=== PATIENT | female | born 1990 | race Two or more races ===

== ENCOUNTER 2017-02-21 12:21 | Emergency (ER) | payer BC ==
--- NOTE | 2017-02-21 12:26 | EDPHY ---
H & P HPI/ROS: HPI CHIEF COMPLAINT: Anxiety/panic attack, syncope HISTORY OF PRESENT ILLNESS: This patient is a very pleasant 26-year-old female , denies having any significant past medical history except for anxiety and what she thinks is panic attacks. She presents emergency room as she states for the past 2-3 hours she has been having palpitations or racing heart regular rhythm. She states she felt very anxious about this she laid down on the ground and states she had a syncopal episode brief loss of consciousness. She did not fall. She denies any chest pain or shortness of breath. Did not have a headache. She states is very brief episode. She feels anxious. She decided come the emergency room if the courage min of her significant other. Upon arrival to the emergency room she is refusing any line or blood draw. She initially did not want any medications but is finally agreed to take half a dose of Ativan p.o. orally and perform an EKG. She does understand that if her concerned that she had a syncopal event we usually check electrolytes and possibly her thyroid and blood sugar however she is refusing any blood draw or IV establishment or blood stick. She is agreeable on EKG and Ativan tab. Of note her vitals are normal here in the emergency room she appears well nontoxic no acute distress. She does admit to having history of syncopal episodes she thinks is anxiety related. Past Medical History: Anxiety, panic attacks Past Surgical History: Denies surgical history Social History: Denies daily use drugs alcohol tobacco products. Lives locally. Works as a psychotherapist. Family History: Noncontributory ROS REVIEW OF SYSTEMS: A comprehensive 10 point review of systems is otherwise negative aside from elements mentioned in the history of present illness. Exam Constitutional appears well nontoxic triage nursing summary reviewed, vital signs reviewed, awake/alert. Eyes normal conjunctivae and sclera, EOMI, PERRLA. HENT normal inspection, atraumatic, moist mucus membranes, no epistaxis, neck supple/ no meningismus, no raccoon eyes. Respiratory clear to auscultation bilaterally, normal breath sounds, no respiratory distress, no wheezing. Cardiovascular rate normal, regular rhythm, no murmur, no edema, distal pulses normal. Gastrointestinal soft, non-tender, no rebound, no guarding, normal bowel sounds, no distension, no pulsatile mass. Genitourinary no CVA tenderness. Musculoskeletal no midline vertebral tenderness, full range of motion, no calf swelling, no tenderness of extremities, no meningismus, good pulses, neurovascularly intact. Skin pink, warm, & dry, no rash, skin atraumatic. Neurologic awake, alert and oriented x 3, AAOx3, moves all 4 extremities equally, motor intact, sensory intact, CN II-XII intact, normal cerebellar, normal vision, normal speech. Psychiatric normal mood/affect. Heme/Lymph/Immune no lymphadenopathy. Differential Diagnosis: Includes but is not limited to in a particular order acute anxiety, panic attack, electrolyte disturbance, thyroid dysfunction, cardiac arrhythmia Medical Decision Making: Plan for this patient will obtain EKG an oral p.o. Ativan 0.5 mg. she has declined blood draw, IV establishment or blood stick. She understands by doing this that we could not, with complete diagnosis for her however will obtain EKG to make sure she does not a cardiac arrhythmia and see if she improves with Ativan. Re-evaluation: EKG interpretation by me on record in [employer] system. Impression a time of EKG 1249 p.m.. This is sinus rhythm rate of 59. There is a first-degree AV block present NJ interval 232. Otherwise no acute ischemic change or signs of cardiac arrhythmia or prolonged intervals sec for the NJ interval. Unremarkable EKG. No signs of Brugada or other tachyarrhythmia. 1434: Patient's resting comfortably. Received 0.5 mg p.o. Ativan does feel relaxed. Blood work has been reviewed is unremarkable. Normal electrolytes. Normal CBC with no significant anemia. EKG is unremarkable. Presentation most likely acute anxiety. Recommend following up with primary care doctor return to the ER for worsening symptoms questions or concerns she understands. This includes syncope, chest pain, shortness of breath or fast heart rate. Source: Patient - Medical/Surgical History Hx Asthma: No Hx Chronic Respiratory Disease: No Hx Diabetes: No Hx Cardiac Disease: No Hx Renal Disease: No Hx Cirrhosis: No Hx Alcoholism: No Hx HIV/AIDS: No Hx Splenectomy or Spleen Trauma: No Other PMH: bulging disc in back; fainting as child; UTI, ovarian cyst - Social History Smoking Status: Never smoked Constitutional: Initial Vital Signs Temperature (C) 36.4 C 02/21/17 12:29 Heart Rate 60 02/21/17 12:29 Respiratory Rate 16 02/21/17 12:29 Blood Pressure 123/91 H 02/21/17 12:29 O2 Sat (%) 99 02/21/17 12:29 O2 Delivery Mode Room Air Allergies/Adverse Reactions: No Known Allergies Allergy (Verified 02/21/17 12:34) Home Medications: Medication Instructions Recorded NK [No Known Home Meds] 09/08/15 Medical Decision Making - Data Points Laboratory Results: Laboratory Results 02/21/17 13:15 02/21/17 13:15 02/21/17 02/21/17 13:15 13:15 WBC 7.32 10^3/uL 10^3/uL (3.80-9.50) RBC 5.09 10^6/uL 10^6/uL (4.18-5.33) Hgb 14.6 g/dL g/dL (12.6-16.3) Hct 44.0 % % (38.0-47.0) MCV 86.4 fL fL (81.5-99.8) MCH 28.7 pg pg (27.9-34.1) MCHC 33.2 g/dL g/dL (32.4-36.7) RDW 12.0 % % (11.5-15.2) Plt Count 361 10^3/uL 10^3/uL (150-400) MPV 9.8 fL fL (8.7-11.7) Neut % (Auto) 63.1 % % (39.3-74.2) Lymph % (Auto) 27.6 % % (15.0-45.0) Briscoe % (Auto) 7.7 % % (4.5-13.0) Eos % (Auto) 0.8 % % (0.6-7.6) Baso % (Auto) 0.5 % % (0.3-1.7) Nucleat RBC Rel Count 0.0 % % (0.0-0.2) Absolute Neuts (auto) 4.62 10^3/uL 10^3/uL (1.70-6.50) Absolute Lymphs (auto) 2.02 10^3/uL 10^3/uL (1.00-3.00) Absolute Monos (auto) 0.56 10^3/uL 10^3/uL (0.30-0.80) Absolute Eos (auto) 0.06 10^3/uL 10^3/uL (0.03-0.40) Absolute Basos (auto) 0.04 10^3/uL 10^3/uL (0.02-0.10) Absolute Nucleated RBC 0.00 10^3/uL 10^3/uL (0-0.01) Immature Gran % 0.3 % % (0.0-1.1) Immature Gran # 0.02 10^3/uL 10^3/uL (0.00-0.10) Sodium 140 mEq/L mEq/L (134-144) Potassium 4.7 mEq/L mEq/L (3.5-5.2) Chloride 104 mEq/L mEq/L (97-110) Carbon Dioxide 23 mEq/l mEq/l (22-31) Anion Gap 13 mEq/L mEq/L (8-16) BUN 11 mg/dL mg/dL (7-23) Creatinine 0.7 mg/dL mg/dL (0.6-1.0) Estimated GFR > 60 Glucose 72 mg/dL mg/dL (70-100) Calcium 10.7 mg/dL H mg/dL (8.5-10.4) Phosphorus 3.6 mg/dL mg/dL (2.5-4.5) TSH 1.430 uIU/mL uIU/mL (0.465-4.680) Medications Given: Discontinued Medications Lorazepam (Ativan) 0.5 mg PO ONCE ONE Stop: 02/21/17 12:44 Last Admin: 02/21/17 12:54 Dose: 0.5 mg Departure - Departure Disposition: Home, Routine, Self-Care Clinical Impression: Anxiety Condition: Good Instructions: Anxiety (ED) Additional Instructions: 1. Return to the emergency room immediately if you develop worsening symptoms includes chest pain, shortness of breath or you pass out again. 2. Stay well-hydrated. 3. Follow up with her primary care doctor. Referrals: NONE *PRIMARY CARE P,. [Primary Care Provider] - As per Instructions
[2017-02-21] MEDS ORDERED: LORazepam 1 MG TAB PO ONE (12:43)
--- NOTE | 2017-02-21 12:53 | CPEKG ---
Heart Rate: 64 RR Interval: 938 P-R Interval: 216 QRSD Interval: 78 QT Interval: 384 QTC Interval: 396 P Moseley: 72 QRS Moseley: 71 T Wave Moseley: 47 EKG Severity - ABNORMAL ECG - EKG Impression: SINUS RHYTHM EKG Impression: FIRST DEGREE AV BLOCK Electronically Signed By: Larry Buckner 02-Mar-2017 12:08:21
[2017-02-21 13:21] LABS: % IMMATURE GRANULYOCYTES 0.3 % (0.0-1.1); ABSOLUTE IMMATURE GRANULOCYTES 0.02 10^3/uL (0.00-0.10); ADD DIFF? NO; ADD MORPH? NO; ADD SCAN? NO; ATYPICAL LYMPHOCYTE FLAG 10 (0-99); FRAGMENT RBC FLAG 0 (0-99); HEMOGLOBIN 14.6 g/dL (12.6-16.3); LEFT SHIFT FLG 0 (0-99); LIPEMIA HEMOLYSIS FLAG 80 (0-99); MEAN CELL HEMOGLOBIN 28.7 pg (27.9-34.1); MEAN CELL HEMOGLOBIN CONCENTR. 33.2 g/dL (32.4-36.7); MEAN CELL VOLUME 86.4 fL (81.5-99.8); MEAN PLATELET VOLUME 9.8 fL (8.7-11.7); PLATELET CLUMPS FLAG 0 (0-99); PLATELET COUNT 361 10^3/uL (150-400); RED BLOOD CELL COUNT 5.09 10^6/uL (4.18-5.33)
[2017-02-21 13:58] LABS: ANION GAP 13 mEq/L (8-16); CALCIUM 10.7 mg/dL (8.5-10.4); CARBON DIOXIDE 23 mEq/l (22-31); CHLORIDE 104 mEq/L (97-110); CREATININE 0.7 mg/dL (0.6-1.0); GLOMERULAR FILTRATION RATE > 60; GLUCOSE 72 mg/dL (70-100); POTASSIUM 4.7 mEq/L (3.5-5.2); SODIUM 140 mEq/L (134-144)
[2017-02-21 14:46] VITALS: BP 115/78; PULSE 78; RESP 20; TEMP 98.2; O2SAT 96
== END 2017-02-21 14:45 | disposition home or self-care (01) ==
LOC: CED 12:21
DX: F41.9 Anxiety disorder, unspecified (principal)
CPT/HCPCS: 80048-PO; 84100-PO; 84443-PO; 85025-PO

== ENCOUNTER 2018-02-11 11:42 | Emergency (ER) | payer BC ==
[2018-02-11 11:54] VITALS: BP 127/85
--- NOTE | 2018-02-11 12:11 | EDPHY ---
H & P Stated Complaint: left side throat swelling and chest pressure, bilateral jaw tingling.lastpm Time Seen by Provider: 02/11/18 12:12 HPI/ROS: CHIEF COMPLAINT: Anxiety HISTORY OF PRESENT ILLNESS: The patient is a 27-year-old female with a history of anxiety who comes to the emergency department with a feeling of swelling on the left side of her throat. She states that it is been present for the last 8 months but last night she was so concerned about it she could not sleep. She has been to the ER several times in the past with similar complaints. She presented to an urgent care last week who reassured her and recommended that she follow up with her primary for thyroid testing and other blood work if needed. No stridor. No shortness of breath. No pain. No syncope. No palpitations. No diaphoresis. No nausea vomiting or GI symptoms. She states that she knows this is probably anxiety but she cannot do anything to make it better. She states that exercise sometimes helps. She has refused anxiolytics in the past. She has tried CBD while without improvement. Severity: Moderate Modifying factors: Mild improvement with exercise REVIEW OF SYSTEMS: Constitutional: denies: chills, fever, recent illness, recent injury EENTM: denies: blurred vision, double vision, nose congestion Respiratory: denies: cough, shortness of breath Cardiac: denies: chest pain, irregular heart rate, lightheadedness, palpitations Gastrointestinal/Abdominal: denies: abdominal pain, diarrhea, nausea, vomiting, blood streaked stools Genitourinary: denies: dysuria, frequency, hematuria, pain Musculoskeletal: denies: joint pain, muscle pain Skin: denies: lesions, rash, jaundice, bruising Neurological: denies: headache, numbness, paresthesia, tingling, dizziness, weakness Hematologic/Lymphatic: denies: blood clots, easy bleeding, easy bruising Immunologic/allergic: denies: HIV/AIDS, transplant 10 systems reviewed and negative except as noted EXAM: GENERAL: Well-appearing, well-nourished and in no acute distress. HEAD: Atraumatic, normocephalic. EYES: Pupils equal round and reactive to light, extraocular movements intact, sclera anicteric, conjunctiva are normal. ENT: TMs normal, nares patent, oropharynx clear without exudates. Moist mucous membranes. NECK: Normal range of motion, supple without lymphadenopathy or JVD. No stridor, no thyromegaly, no tenderness LUNGS: Breath sounds clear to auscultation bilaterally and equal. No wheezes rales or rhonchi. HEART: Regular rate and rhythm without murmurs, rubs or gallops. ABDOMEN: Soft, nontender, normoactive bowel sounds. No guarding, no rebound. No masses appreciated. BACK: No CVA tenderness, no spinal tenderness, step-offs or deformities EXTREMITIES: Normal range of motion, no pitting or edema. No clubbing or cyanosis. NEUROLOGICAL: Cranial nerves II through XII grossly intact. Normal speech, normal gait. 5/5 strength, normal movement in all extremities, normal sensation , normal reflexes PSYCH: Normal mood, normal affect. SKIN: Warm, dry, normal turgor, no visible rashes or lesions. Source: Patient Exam Limitations: No limitations - Personal History LMP (Females 10-55): 8-14 Days Ago - Medical/Surgical History Hx Asthma: No Hx Chronic Respiratory Disease: No Hx Diabetes: No Hx Cardiac Disease: No Hx Renal Disease: No Hx Cirrhosis: No Hx Alcoholism: No Hx HIV/AIDS: No Hx Splenectomy or Spleen Trauma: No Other PMH: bulging disc in back; fainting as child;, ovarian cyst - Social History Smoking Status: Never smoked Constitutional: Initial Vital Signs Temperature (C) 36.9 C 02/11/18 11:48 Heart Rate 72 02/11/18 11:48 Respiratory Rate 16 02/11/18 11:48 Blood Pressure 127/85 H 02/11/18 11:48 O2 Sat (%) 97 02/11/18 11:48 Allergies/Adverse Reactions: No Known Allergies Allergy (Verified 02/11/18 11:48) Home Medications: Medication Instructions Recorded Cbd Oil 02/11/18 Medical Decision Making - Diagnostics EKG Interpretation: An EKG obtained and was read and documented in trace view. Please see trace view for full reading and report. Sinus rhythm, no acute ischemic changes, no arrhythmias. ED Course/Re-evaluation: We had a long discussion and I attempted to reassure the patient. She has no stridor. No sign of mass. No palpable mass. No tenderness. No thyromegaly. She is not tachycardic hypertensive or diaphoretic. She has had her thyroid checked within the year and it is been normal. She understands and the somewhat reassured. I did offer to check her thyroid a as well as other lab work for her again she would like but that it would probably not be resulted today. We agreed in the in to have her follow up with her primary for this. I offered her anxiolytics which she again declines. We did perform an EKG which is reassuring. Differential Diagnosis: Partial list of the Differential diagnosis considered include but were not limited to; anxiety, sore throat, lymphadenopathy, for body and although unlikely based on the history and physical exam, I also considered epiglottitis , pneumothorax, aneurysm, thyroid mass, acute coronary disease. I discussed these differential diagnoses and the plan with the patient as well as the usual and expected course. The patient understands that the diagnosis is provisional and that in medicine we are not always correct and that further workup is often warranted. Usual and customary warnings were given. All of the patient's questions were answered. The patient was instructed to return to the emergency department should the symptoms at all worsen or return, otherwise to followup with the physician as we discussed. Departure - Departure Disposition: Home, Routine, Self-Care Clinical Impression: Anxiety Condition: Fair Instructions: Anxiety (ED) Additional Instructions: Make sure to follow up with the referred doctor in the next few days. Call for appointment today . Referrals: Tim Junior MD [Medical Doctor] - As per Instructions CHIQUITA MIRELES [Medical Doctor] - As per Instructions
--- NOTE | 2018-02-11 12:18 | CPEKG ---
Test Reason : OPEN Blood Pressure : / mmHG Vent. Rate : 061 BPM Atrial Rate : 059 BPM P-R Int : 237 ms QRS Dur : 078 ms QT Int : 387 ms P-R-T Axes : 091 060 044 degrees QTc Int : 390 ms Sinus rhythm Prolonged MD interval Confirmed by Baljit Champagne ([id number]) on 02/11/2018 12:17:37 PM Referred By: Confirmed By:Baljit Champagne
== END 2018-02-11 12:21 | disposition home or self-care (01) ==
LOC: CED 11:42
DX: F41.9 Anxiety disorder, unspecified (principal)